=== PATIENT | male | born 2000 | race American Indian/Alaskan Native ===

== ENCOUNTER 2021-11-07 08:57 | Observation (INO) | payer BC, OTHER ==
[~2021-11-07] VITALS: Ht 175.3 cm; Wt 72.6 kg
[2021-11-07 11:21] LABS: BASOPHILS ABSOLUTE AUTO 0.03 K/mm3 (0.00-0.23); BASOPHILS PERCENT AUTO 0 % (0-2); EOSINOPHILS ABSOLUTE AUTO 0.02 K/mm3 (0.00-0.68); EOSINOPHILS PERCENT AUTO 0 % (0-6); Hematocrit 42.8 % (37.0-53.0); IMMATURE GRAN ABSOLUTE AUTO 0.02 K/mm3 (0.00-0.10); IMMATURE GRAN PERCENT AUTO 0 % (0-1); LYMPHOCYTES ABSOLUTE AUTO 0.71 K/mm3 (0.84-5.20); LYMPHOCYTES PERCENT AUTO 6 % (21-46); MONOCYTES ABSOLUTE AUTO 0.43 K/mm3 (0.16-1.47); MONOCYTES PERCENT AUTO 4 % (4-13); Mean Corpuscular HGB 30.8 pg (26.0-34.0); Mean Corpuscular Volume 88 fL (80-100); Mean Platelet Volume 9.6 fL (9.1-12.4); NEUTROPHILS ABSOLUTE AUTO 10.47 K/mm3 (1.96-9.15); NEUTROPHILS PERCENT AUTO 90 % (41-73); Platelet Count 249 K/mm3 (150-400); RDW Coefficient Variation 11.7 % (11.7-14.2); RDW Standard Deviation 37.8 fL (35.1-46.3); Red Blood Cell Count 4.87 M/mm3 (4.30-5.90); White Blood Cell Count 11.68 K/mm3 (4.00-11.30)
[2021-11-07 11:39] LABS: Albumin, Blood 4.9 g/dL (3.4-5.0); Albumin/Globulin Ratio 1.4 (0.8-1.8); Bun/Creatinine Ratio 14.4 (12.0-20.0); Calcium, Blood 9.9 mg/dL (8.5-10.1); Creatinine, Blood 0.76 mg/dL (0.60-1.20); Globulin, Blood 3.5 g/dL (2.2-4.0); Potassium, Blood 3.5 mmol/L (3.5-5.5); Total Protein, Blood 8.4 g/dL (6.4-8.2)
[2021-11-07 11:54] LABS: Influenza A, PCR NEGATIVE (NEGATIVE); Influenza B, PCR NEGATIVE (NEGATIVE); Resp Syncytial Virus, PCR NEGATIVE (NEGATIVE); SARS-Cov-2 (COVID-19) PCR, MMC NEGATIVE (NEGATIVE)
[2021-11-07 16:02] LABS: Hematocrit 37.1 % (37.0-53.0); Hemoglobin 13.3 g/dL (13.5-17.5)
[2021-11-07 21:03] LABS: Hemoglobin 14.3 g/dL (13.5-17.5)
[2021-11-08 03:36] LABS: Hematocrit 39.4 % (37.0-53.0); Hemoglobin 13.5 g/dL (13.5-17.5)
--- NOTE | 2021-11-08 06:05 | NUR ---
SHIFT SUMMARY PT ADMITTED YESTERDAY FOR HEMATEMESIS. AOX4. VSS. REPORTS HE HAS BEEN VOMITING SINCE MON OR ON/OFF & THEN YESTERDAY AFTER A FEW EPISODES OF EMESIS HE HAD EMESIS c BLOOD & BLOOD CLOTS. PT ALSO REPORTS HAVING DIARRHEA c BROWN, RED BLOOD. DR LUQUE IN TO SEE PT LAST NIGHT, PLAN TO HAVE ENDOSCOPY AFTER 1400 TODAY. CALL LIGHT IN REACH, WILL MONITOR.
--- NOTE | 2021-11-08 13:32 | NUR ---
[facility] PATIENT WAS BROUGHT TO DAY SURGERY FOR HIS PROCEDURE.
--- NOTE | 2021-11-08 14:01 | NUR ---
11/08/21 1401 Kelly Huff HISTORY, CHART, MEDICATIONS AND ALLERGIES REVIEWED BEFORE START OF PROCEDURE. PATIENT CONFIRMS NPO STATUS AND AGREES WITH SCHEDULED PROCEDURE. 3-LEAD EKG REVIEWED WITH PHYSICIAN PRIOR TO START OF PROCEDURE. MONITOR INTACT WITH CONTINUOUS PULSE OXIMETRY,CAPNOGRAPHY, 3-LEAD EKG, INTERMITTENT BP. SUPPLEMENTAL O2 TO BE TITRATED THROUGHOUT PROCEDURE TO MAINTAIN O2 SATURATION ABOVE 90%. PATIENT DETERMINED TO BE ASA APPROPRIATE FOR PROPOFOL SEDATION PRIOR TO START OF PROCEDURE BY DR. LUQUE.
--- NOTE | 2021-11-08 15:52 | NUR ---
PT TO STEP FOR CONTINUED RECOVERY PRIOR TO TRANSFER TO MEDICAL FLOOR PER CLINICAL JUDGEMENT.
== END 2021-11-08 17:29 | disposition home or self-care (01) ==
LOC: ER 08:57 → ERHOLD 15:01 → MEDS 15:01
PROVIDERS: Internal Medicine Gastroenterology; Nurse Practitioner Acute Care; Physician Assistant; ADMIT Hospitalist
PROC: 0DB68ZX Excision of Stomach, Via Natural or Artificial Opening Endoscopic, Diagnostic (ICD-10-PCS; principal; 2021-11-08 14:00)
DX: K29.50 Unspecified chronic gastritis without bleeding (principal); L53.8 Other specified erythematous conditions; B96.81 Helicobacter pylori [H. pylori] as the cause of diseases classified elsewhere; Z20.822 Contact with and (suspected) exposure to COVID-19
CPT/HCPCS: 0241U; 36415; 80053; 83690; 85014; 85018; 85025; 88305; 88342; 96361; 96374; 96375; 96376; 99285-25; C9113; G0378; J2250; J2405; J2704; J7030; J7120